=== PATIENT | female | born 1955 | race Hispanic/Latino ===

== ENCOUNTER 2019-08-07 20:37 | Emergency (ER) | payer BC ==
[~2019-08-07] VITALS: Ht 154.9 cm; Wt 73.9 kg
[~2019-08-07 20:37] MED LIST: ACETAMINOPHEN500 MG PO; IBUPROFEN200 MG PO; IBUPROFEN800 MG PO; LEVAQUIN500 MG PO; OLMESARTAN MEDO20 MG PO; PERCOCET 5-3251 EACH PO
== END 2019-08-07 22:17 | disposition home or self-care (01) ==
LOC: ED 20:37
DX: S61.212A Laceration without foreign body of right middle finger without damage to nail, initial encounter (principal); I10 Essential (primary) hypertension; X58.XXXA Exposure to other specified factors, initial encounter
CPT/HCPCS: 12001; 99282-25

== ENCOUNTER 2019-09-27 22:53 | Emergency (ER) | payer BC ==
[~2019-09-27] VITALS: Ht 154.9 cm; Wt 73.5 kg
[2019-09-28] MEDS ORDERED: OMEPRAZOLE20 MG PO (01:12)
== END 2019-09-28 01:34 | disposition home or self-care (01) ==
LOC: ED 22:53
DX: R10.9 Unspecified abdominal pain (principal); I10 Essential (primary) hypertension
CPT/HCPCS: 80053; 83690; 85025; 96374; 96375; 99284-25; C9113; J2405; J7030

== ENCOUNTER 2019-09-30 19:35 | Emergency (ER) | payer BC ==
[~2019-09-30] VITALS: Ht 154.9 cm; Wt 73.9 kg
[~2019-09-30 19:35] MED LIST changes: +OMEPRAZOLE20 MG PO
--- OUTSIDE RECORDS SUMMARY | 2019-09-30 19:38 | XMS ---
PreManage Notification: GISELA BRASWELL Security Demand Manager Events No recent Security Events currently on file CRITERIA MET - [facility] - 2 Visits in 30 Days CARE PROVIDERS SABRINA IBRAHIM Physician Kitchenwhere Maker Current PHONE: [phone] Tobin has no Care Guidelines for this patient. E.DHussain VISIT COUNT (12 MO.) 3 [facility] TOTAL 3 NOTE: Visits indicate total known visits. ED/UCC VISIT TRACKING (12 MO.) 09/30/2019 19:36 [facility] TYPE: Emergency COMPLAINT: - FLU SYMPTOMS WORSENING 09/27/2019 22:54 [facility] TYPE: Emergency COMPLAINT: - FEVER/ABD PAIN DIAGNOSES: - Essential (primary) hypertension - Unspecified abdominal pain 08/07/2019 20:38 [facility] TYPE: Emergency COMPLAINT: - R HAND LACERATION DIAGNOSES: - Laceration without foreign body of right middle finger withou - Exposure to other specified factors, initial encounter - Laceration without foreign body of right middle finger withou - Essential (primary) hypertension INPATIENT VISIT TRACKING (12 MO.) No inpatient visits to display in this time frame [email or web address]
[2019-09-30] MEDS ORDERED: OLMESARTAN MEDO20 MG PO (20:00)
[2019-09-30] MEDS ORDERED: NORCO 5-325 TA1 EACH PO (20:36)
== END 2019-09-30 21:05 | disposition home or self-care (01) ==
LOC: ED 19:35
DX: U07.1 COVID-19 (principal); R10.9 Unspecified abdominal pain; I10 Essential (primary) hypertension; Z79.899 Other long term (current) drug therapy
CPT/HCPCS: 71045; 80053; 81001; 83690; 85025; 99285-25